=== PATIENT | male | born 1980 | race Caucasian/White ===

== ENCOUNTER 2019-08-12 19:00 | Emergency (ER) | payer MEDICAID, SELFPAY ==
--- NOTE | ~2019-08-12 | XR_ITS ---
EXAMINATION: XR chest 2V EXAM DATE: 08/12/2019 19:40 INDICATION: Anterior chest discomfort, tightness. Shortness of breath. TECHNIQUE: Frontal and lateral projections of the chest obtained and reviewed. Comparison is made to prior examination from 09/24/2018. FINDINGS: The lungs are clear. There are no pleural effusions. The cardiomediastinal silhouette is within normal limits. There is no pneumothorax suspected. The bones and soft tissues are unremarkab le. IMPRESSION: Unremarkable chest x-ray exam. Reviewed, dictated and finalized at location A.
[2019-08-12 19:09] VITALS: BP 163/98; PULSE 103; RESP 16; TEMP 36.7; O2SAT 98
[2019-08-12 19:15] VITALS: RESP 17; O2SAT 100
--- NOTE | 2019-08-12 19:19 | ECG_ITS ---
Measurements Intervals [place] Rate: 100 P: 36 GA: 139 QRS: -13 QRSD: 101 T: 22 QT: 362 QTc: 469 Interpretive Statements SINUS TACHYCARDIA BORDERLINE T WAVE ABNORMALITY- INFERIOR LEADS BORDERLINE ECG Electronically Signed On 08-12-2019 19:42:38 CDT by Nir Campos D.O.
[2019-08-12 19:23] VITALS: PULSE 85
[2019-08-12 19:37] LABS: Basophils Absolute Auto 0.1 K/mm3 (0.0-0.1); Basophils Percent Auto 0.6 % (0.2-1.2); Eosinophils Absolute Auto 0.2 K/mm3 (0-0.3); Eosinophils Percent Auto 2.6 % (0-4.4); Hemoglobin 14.5 g/dL (14.0-18.0); Immature Granulocyte Absolute 0.01 K/mm3 (0.00-0.031); Immature Granulocyte Percent A 0.1 % (0-0.5); Lymphocytes Percent Auto 37.8 % (18.3-44.2); Mean Corpuscular HGB Conc 35.4 g/dl (32-36); Mean Corpuscular Hemoglobin 29.5 pg (26-34); Mean Corpuscular Volume 83.3 fl (80-100); Mean Platelet Volume 10.7 fl (7.4-10.4); Monocytes Absolute Auto 0.5 K/mm3 (0.1-0.6); Monocytes Percent Auto 6.1 % (2.6-8.5); Neutrophils Absolute Auto 4.3 K/mm3 (1.3-6.7); Neutrophils Percent Auto 52.8 % (45.5-73.1); Platelet Count Result 271 k/mm3 (150-375); Red Blood Count 4.92 M/mm3 (4.6-6.20); White Blood Count 8.2 K/mm3 (4.5-10.0)
[2019-08-12 19:45] LABS: INR 0.9; Prothrombin Time 12.2 Seconds (11.1-14.7)
[2019-08-12 19:46] LABS: Partial Thromboplastin Time 27.5 SECONDS (22.3-36.8)
[2019-08-12 19:49] LABS: Blood Urea Nitrogen 8 mg/dL (9-20); Calcium 9.2 mg/dL (8.4-10.2); Carbon Dioxide 26 mmol/L (22-30); Chloride 102 mmol/L (98-107); Estimated CRCL calculation 149 ml/min; Estimated Glomerular Filt Rate > 60; Glucose 115 mg/dL (75-110); Potassium 3.4 mmol/L (3.4-5.0); Sodium 138 mmol/L (137-145)
[2019-08-12 20:01] LABS: Troponin I < 0.012 ng/mL (0.000-0.034)
[2019-08-12] MEDS: ASPIRIN 81 MG CHEWABLE TABLET 324 MG PO (20:23)
[2019-08-12 20:25] VITALS: BP 137/88; PULSE 90; RESP 19; O2SAT 100
--- NOTE | 2019-08-12 20:50 | PC.NURSE ---
Patient reports he feels like he is going to pass out and his left leg is starting to feel numb. EDP Raissa notified.
[2019-08-12 20:57] VITALS: BP 154/97; PULSE 99; RESP 20; O2SAT 97
--- NOTE | 2019-08-12 21:09 | PC.NURSE ---
Called lab to add on D Dimer
--- NOTE | 2019-08-12 21:15 | ED.GENADULT ---
HPI - General Adult General Chief complaint: Unspecified Stated complaint: ELEVATED BP FEELS SHAKEY Time Seen by Provider: 08/12/19 21:08 History of Present Illness HPI narrative: Patient presents with multiple symptoms. He is weaning off his benzodiazepines, since they were discontinued at his new mental health clinic. He took his last pill yesterday. Now he feels tingly all over and jittery. He feels like his left foot is going cold. He feels like he has chest pressure. His blood pressure is elevated. He still on his methadone, but also being weaned from his Adderall. 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 He has insurance which will pay for psychiatrist, but does not have one now. He denies medical problems. Related Data Home Medications Medication Instructions Recorded Confirmed Methadone Intensol 126 mg 08/12/19 clonazepam 08/12/19 dextroamphetamine-amphetamine 08/12/19 Allergies Allergy/AdvReac Type Severity Reaction Status Date / Time No Known Allergies Allergy Unverified 09/24/18 23:33 Review of Systems Review of Systems: Narrative: CONSTITUTIONAL: Denies fever, chills, or sweats. EYES: Denies visual changes, redness, or discharge. ENT: Denies rhinorrhea, congestion, sore throat, or otalgia. CARDIOVASCULAR: Denies chest pain, palpitations, or edema. RESPIRATORY: Denies cough or dyspnea. GASTROINTESTINAL: Denies abdominal pain, nausea, vomiting, or diarrhea. GENITOURINARY: Denies dysuria or hematuria. SKIN: Denies rash or itching. MUSCULOSKELETAL: Denies back pain, joint pain, or myalgia. NEUROLOGIC: Denies headache, numbness, or weakness. He feels like his left foot is going cold, jittery and tingly. PSYCHIATRIC: Denies anxiety or depression. All systems reviewed & are unremarkable except as noted in HPI and below PMFSH Past Medical History Medical History (Updated 08/12/19 @ 21:20 by Nai Haji MD) Benzodiazepine withdrawal Heroin addiction Surgical History Surgical History (Updated 08/12/19 @ 21:20 by Nai Haji MD) History of circumcision Social History Social History (Updated 08/12/19 @ 21:20 by Nai Haji MD) Smoking status: Former smoker Substance use: former Exam Narrative: Exam Narrative: My gENERAL: Well-appearing, well-nourished, and in no acute distress. HEAD: Normocephalic, atraumatic. EYES: PERRLA and EOMI. ENT: Nares clear, no rhinorrhea or epistaxis. Mucous membranes moist. NECK: Supple. CHEST: Clear to auscultation. No respiratory distress. HEART: Regular rate and rhythm. No murmur heard. Normal peripheral pulses. ABDOMEN: Soft, nontender, nondistended, normal active bowel sounds. EXTREMITIES: Normal range of motion. No edema. SKIN: Warm, dry, psoriasis plaques on his hands. NEURO: No focal deficits. Alert and oriented x3. PSYCH: Normal mood and affect. Course Reevaluation(s) Reevaluation #1: Went back to the patient admit his fianc?e, he is still concerned that he will not find a psychiatrist in a timely fashion. I encouraged him to call the one 800-number on his insurance. I told him I would give him a few days worth of benzodiazepines for the withdrawal. Date: 08/12/19 Time: 22:48 Vital Signs Vital signs: Vital Signs Temperature 98.1 F 08/12/19 19:09 Pulse Rate 103 H 08/12/19 19:09 Respiratory Rate 16 08/12/19 19:09 Blood Pressure 163/98 H 08/12/19 19:09 Pulse Oximetry 98 08/12/19 19:09 Temperature 98.1 F 08/12/19 19:09 Pulse Rate 99 08/12/19 20:57 Respiratory Rate 20 08/12/19 20:57 Blood Pressure 154/97 H 08/12/19 20:57 Pulse Oximetry 97 08/12/19 20:57 Medical Decision Making Differential Diagnosis Differential Diagnosis: Benzodiazepine withdrawal. Medical Records Medical records reviewed: Yes I reviewed the patient's medical records. Vital Signs Vital Signs: Vital Signs Temperature 98.1 F 08/12/19 19:09 Pulse Rate 103 H 08/12/19 19:09 Respiratory Rate 16 08/12/19 19:09 B
[2019-08-12 21:23] LABS: D Dimer 0.29 ug/mL (<0.48)
[2019-08-12] MEDS: LORAZEPAM INJ 2 MG/ML VIAL 1 MG IV PUSH (21:24)
--- NOTE | 2019-08-12 22:09 | PC.NURSE ---
Per EDP Raissa via verbal order read back, no 3 hour troponin needs to be drawn.
[2019-08-12 23:01] VITALS: BP 139/89; PULSE 89; RESP 12; TEMP 36.3; O2SAT 100
== END 2019-08-12 23:03 | disposition home or self-care (01) ==
PROVIDERS: Emergency Provider Emergency Medicine; PCP Internal Medicine
DX: F13.232 Sedative, hypnotic or anxiolytic dependence with withdrawal with perceptual disturbance (principal); Z87.891 Personal history of nicotine dependence; R00.0 Tachycardia, unspecified; R94.31 Abnormal electrocardiogram [ECG] [EKG]
CPT/HCPCS: 36415; 71046; 80048; 84484; 85025; 85380; 85610; 85730; 93005; 96374; 99284; A9270; J2060

== ENCOUNTER 2020-06-22 14:09 | Outpatient (CLI) | payer OTHER, SELFPAY | END 2020-06-22 14:10 | disposition home or self-care (01) | LOC: ANHCOVIDVC 14:09 | PROVIDERS: PCP Internal Medicine | DX: Z23 Encounter for immunization (principal) | CPT/HCPCS: 0001A; 91300 ==

== ENCOUNTER 2020-07-07 14:52 | Emergency (ER) | payer OTHER, SELFPAY ==
[2020-07-07] VITALS (16 sets, daily range): BP systolic 105–150; BP diastolic 73–99; PULSE 67–93; RESP 14–22; TEMP 35.9; O2SAT 96–100
--- NOTE | ~2020-07-07 | XR_ITS ---
EXAMINATION: XR chest 1V portable 07/07/2020 17:49 INDICATION: Midsternal chest pain and shortness of breath PROCEDURE: AP portable chest COMPARISON: 08/12/2019 FINDINGS: The lungs are clear. The cardiomediastinal silhouette is within normal limits. There are no pleural effusions. There is no pneumothorax suspected. IMPRESSION: 1: NO ACUTE CARDIOPULMONARY DISEASE. Reviewed, dictated and finalized at location A.
--- NOTE | 2020-07-07 17:26 | PC.NURSE ---
Pt to ED with complaints of feeling very anxious. Pt states he used to be prescribed clonazepam for his anxiety but he is no longer prescribed them as he does not see his PCP any more. Pt states he had been taking Xanax that he buys off the street but he ran out yesterday.
--- NOTE | 2020-07-07 17:31 | ECG_ITS ---
Measurements Intervals [place] Rate: 72 P: 12 TN: 146 QRS: -9 QRSD: 94 T: 34 QT: 298 QTc: 327 Interpretive Statements SINUS RHYTHM INCOMPLETE RIGHT BUNDLE BRANCH BLOCK BASELINE WANDER- I, II, III, AVR, AVF, V1, V3-V6 BORDERLINE ECG Electronically Signed On 07-07-2020 20:01:06 CDT by Nir Campos D.O.
--- NOTE | 2020-07-07 17:40 | ED.GENADULT ---
HPI - General Adult General Chief complaint: Unspecified Stated complaint: xanax withdrawal Time Seen by Provider: 07/07/20 17:25 Source: patient History of Present Illness HPI narrative: Patient is a 40 y/o male complaining of chest pressure and inability to catch a deep breath starting this morning. He describes his chest pressure as midsternal and rates it as 5/10. His chest discomfort radiates to his back. There is no alleviating or exacerbating factor. He states that he was on Clonapam and just ran out. Related Data Home Medications Medication Instructions Recorded Confirmed Methadone Intensol 126 mg BYMOUTH 08/12/19 Allergies Allergy/AdvReac Type Severity Reaction Status Date / Time No Known Allergies Allergy Unverified 07/07/20 17:22 Review of Systems Constitutional: Constitutional: Denies chills, Denies fever(s), Denies headache(s) and Denies weakness Eyes: Eyes: Denies blurry vision ENT: Denies headache(s) and Denies neck pain Cardiovascular: Cardiovascular: Reports chest pain and Reports dyspnea Respiratory: Respiratory: Denies cough and Reports dyspnea Gastrointestinal: Gastrointestinal: Denies abdominal pain, Denies diarrhea, Denies nausea and Denies vomiting Genitourinary: Genitourinary: Denies hematuria and Denies dysuria Musculoskeletal: Musculoskeletal: Denies back pain and Denies neck pain Neurologic: Denies headache(s) and Denies weakness PMFSH Past Medical History Medical History Benzodiazepine withdrawal Heroin addiction Surgical History Surgical History History of circumcision Social History Social History Smoking status: Former smoker Substance use: former Exam Const: General: no acute distress and well developed Orientation/consciousness: oriented to person, oriented to place, oriented to time and patient oriented x3 HENMT: Head: normocephalic Ears: external ears normal General nose exam: Normal external nose present Eyes: General: appearance normal, both eyes and all related structures Conjunctivae: conjunctivae normal Neck: Neck: normal visual inspection and full ROM Chest: Chest palpation & inspection: normal inspection of the chest and no tenderness Resp: Effort & Inspection: normal respiratory effort Auscultation: clear to auscultation bilaterally Cardio: Rate: regular rate Rhythm: regular rhythm GI: GI Palp: No abdominal tenderness and Yes Soft to palpation Skin: General skin exam: normal color and turgor normal Neuro: General: oriented to person, oriented to place, oriented to time and patient oriented x3 Cognition (Neuro): normal cognition Extrem: General: normal to inspection, full ROM and no pedal edema Psych: Appearance: grossly normal Mental Status: mental status grossly normal Affect: Anxious affect present Course Vital Signs Vital signs: Vital Signs Temperature 35.9 C L 07/07/20 14:54 Pulse Rate 76 07/07/20 14:54 Respiratory Rate 20 07/07/20 14:54 Blood Pressure 133/96 H 07/07/20 14:54 Pulse Oximetry 100 07/07/20 14:54 Temperature 35.9 C L 07/07/20 14:54 Pulse Rate 92 07/07/20 20:38 Respiratory Rate 20 07/07/20 20:38 Blood Pressure 124/99 H 07/07/20 20:38 Pulse Oximetry 99 07/07/20 20:38 Medical Decision Making Vital Signs Vital Signs: Vital Signs Temperature 35.9 C L 07/07/20 14:54 Pulse Rate 76 07/07/20 14:54 Respiratory Rate 20 07/07/20 14:54 Blood Pressure 133/96 H 07/07/20 14:54 Pulse Oximetry 100 07/07/20 14:54 Temperature 35.9 C L 07/07/20 14:54 Pulse Rate 92 07/07/20 20:38 Respiratory Rate 20 07/07/20 20:38 Blood Pressure 124/99 H 07/07/20 20:38 Pulse Oximetry 99 07/07/20 20:38 Lab Data Result diagrams: 07/07/20 17:53 07/07/20 17:53 Labs: Lab Results
--- NOTE | 2020-07-07 17:46 | PC.NURSE ---
xray at bedside.
[2020-07-07 18:09] LABS: Alanine Aminotransferase 53 U/L (4-50); Albumin Level 4.9 g/dL (3.5-5.1); Alkaline Phosphatase 97 U/L (38-126); Anion Gap 7 mmol/L (8-16); Aspartate Amino Transferase 52 U/L (17-59); Blood Urea Nitrogen 10 mg/dL (9-20); Calcium 10.6 mg/dL (8.4-10.2); Carbon Dioxide 28 mmol/L (22-30); Chloride 104 mmol/L (98-107); Estimated CRCL calculation 101 ml/min; Estimated Glomerular Filt Rate > 60; Glucose 110 mg/dL (75-110); Potassium 3.7 mmol/L (3.4-5.0); Sodium 139 mmol/L (137-145)
[2020-07-07 18:13] LABS: Basophils Percent Auto 0.4 % (0.2-1.2); Eosinophils Percent Auto 0.3 % (0-4.4); Hematocrit 40.9 % (42.0-52.0); Hemoglobin 14.2 g/dL (14.0-18.0); Immature Granulocyte Absolute 0.01 K/mm3 (0.00-0.031); Immature Granulocyte Percent A 0.1 % (0-0.5); Lymphocytes Absolute Auto 1.53 K/mm3 (0.9-3.2); Lymphocytes Percent Auto 19.3 % (18.3-44.2); Mean Corpuscular HGB Conc 34.7 g/dl (32-36); Mean Corpuscular Hemoglobin 28.9 pg (26-34); Mean Corpuscular Volume 83.1 fl (80-100); Mean Platelet Volume 9.6 fl (7.4-10.4); Monocytes Absolute Auto 0.4 K/mm3 (0.1-0.6); Monocytes Percent Auto 5.2 % (2.6-8.5); Neutrophils Absolute Auto 5.9 K/mm3 (1.3-6.7); Neutrophils Percent Auto 74.7 % (45.5-73.1); Platelet Count Result 297 k/mm3 (150-375); Red Blood Count 4.92 M/mm3 (4.6-6.20); Red Cell Distribution Width 12.3 % (11.5-14.5); White Blood Count 7.9 K/mm3 (4.5-10.0)
[2020-07-07 18:20] LABS: Troponin I < 0.012 ng/mL (0.000-0.034)
[2020-07-07 18:43] LABS: Add Urine Microscopic? YES; Appearance Urine Clear (Clear); Bilirubin Urine Negative (Negative); Blood Urine Negative (Negative); Color Urine Straw (Yellow); Glucose Urine UA Negative (Negative); Ketones Urine Negative (Negative); Leukocyte Esterase Ur Trace LEU/UL (Negative); Nitrate Urine Negative (Negative); Protein Urine Negative (Negative); RBC Urine 0-2 /hpf (0-2); Urobilinogen Urine Negative mg/dL (<2.0); WBC Urine 0-3 /hpf
[2020-07-07 18:45] LABS: Specific Grav Ur 1.004 (1.001-1.035)
[2020-07-07 18:58] LABS: Amphetamine Screen Urine Negative (Negative); Barbiturate Screen Urine Negative (Negative); Benzodiazepines Screen Urine Negative (Negative); Cannabinoid Screen Urine Negative (Negative); Cocaine Screen Urine Negative (Negative); Methadone Screen Urine Positive (Negative); Opiate Screen Urine Positive (Negative); Phencyclidine Screen Urine Negative (Negative)
[2020-07-07] MEDS: LORazepam (*CRX) 0.5 MG TABLET PO (19:39)
[2020-07-07] MEDS: BELLADONNA ALK/PHENOB ELIX 10 ML, MAG HYDROX/ALUMINUM HYD/SIMETH 30 ML, LIDOCAINE HCL 2... PO (20:35)
[2020-07-07 21:29] LABS: Troponin I < 0.012 ng/mL (0.000-0.034)
== END 2020-07-07 22:46 | disposition home or self-care (01) ==
PROVIDERS: Emergency Provider Emergency Medicine
DX: R07.89 Other chest pain (principal); F41.9 Anxiety disorder, unspecified; Z87.891 Personal history of nicotine dependence; I45.10 Unspecified right bundle-branch block
CPT/HCPCS: 36415; 71045; 80053; 80307; 81001; 84484; 85025; 93005; 99284; A9270

== ENCOUNTER 2020-07-13 13:31 | Outpatient (CLI) | payer OTHER, SELFPAY | END 2020-07-13 13:32 | LOC: ANHCOVIDVC 13:31 | DX: Z23 Encounter for immunization (principal) | CPT/HCPCS: 0002A; 91300 ==

== ENCOUNTER 2021-07-25 09:03 | Outpatient (CLI) | payer OTHER, SELFPAY ==
--- NOTE | ~2021-07-25 | XR_ITS ---
EXAMINATION: XR chest 2V 07/25/2021 10:15 INDICATION: Dyspnea. PROCEDURE: 2 view chest COMPARISON: Comparison to multiple prior studies sequentially, with oldest reviewed study dated 10/10. FINDINGS: The lungs are clear. The cardiomediastinal silhouette is within normal limits. There are no pleural effusions. There is no pneumothorax suspected. IMPRESSION: 1: NO ACUTE CARDIOPULMONARY DISEASE. Reviewed, dictated and finalized at location A.
--- NOTE | ~2021-07-25 | XR_ITS ---
EXAMINATION: XR barium swallow DATE: 07/25/2021 10:18 INDICATION: Dysphagia, possible hernia, indigestion TECHNIQUE: The patient drank thick barium, gas-producing crystals, and thin barium. Fluoroscopy of th e hypopharynx and esophagus was performed. Fluoroscopy exposure time was 2.2 minutes. The DAP for thi s procedure was 17.604 Gycm2. COMPARISON: None. FINDINGS: There is no mass or stricture of the esophagus. Mild nonperistaltic contractions are noted in the mid and distal esophagus. There is no hiatal hernia. There was no gastroesophageal reflux with provocative maneuvers. IMPRESSION: 1. Mild nonperistaltic contractions of the mid and distal esophagus. Reviewed, dictated and finalized at location A.
== END 2021-07-25 09:04 | disposition home or self-care (01) ==
PROVIDERS: PCP Family Medicine; Visit Provider Nurse Practitioner Adult Health
DX: K44.9 Diaphragmatic hernia without obstruction or gangrene (principal); R10.9 Unspecified abdominal pain; R13.10 Dysphagia, unspecified; R06.00 Dyspnea, unspecified
CPT/HCPCS: 71046; 74220

== ENCOUNTER 2024-03-02 09:15 | Outpatient (CLI) | payer OTHER, SELFPAY ==
[2024-03-02 09:47] LABS: Basophils Percent Auto 0.3 % (0.2-1.2); Eosinophils Absolute Auto 0.2 K/mm3 (0-0.3); Eosinophils Percent Auto 3.4 % (0-4.4); Hematocrit 34.4 % (42.0-52.0); Hemoglobin 12.1 g/dL (14.0-18.0); Immature Granulocyte Absolute 0.02 K/mm3 (0.00-0.031); Immature Granulocyte Percent A 0.3 % (0-0.5); Lymphocytes Percent Auto 40.9 % (18.3-44.2); Mean Corpuscular HGB Conc 35.2 g/dl (32-36); Mean Corpuscular Hemoglobin 29.3 pg (26-34); Mean Corpuscular Volume 83.3 fl (80-100); Mean Platelet Volume 10.2 fl (7.4-10.4); Monocytes Absolute Auto 0.6 K/mm3 (0.1-0.6); Monocytes Percent Auto 10.2 % (2.6-8.5); Neutrophils Absolute Auto 2.6 K/mm3 (1.3-6.7); Neutrophils Percent Auto 44.9 % (45.5-73.1); Platelet Count Result 202 k/mm3 (150-375); Red Blood Count 4.13 M/mm3 (4.6-6.20); Red Cell Distribution Width 12.4 % (11.5-14.5); White Blood Count 5.9 K/mm3 (4.5-10.0)
[2024-03-02 10:04] LABS: Alanine Aminotransferase 79 U/L (6-50); Alkaline Phosphatase 73 U/L (38-126); Anion Gap 7 mmol/L (4-12); Aspartate Amino Transferase 68 U/L (17-59); Blood Urea Nitrogen 8 mg/dL (9-20); Calcium 8.9 mg/dL (8.4-10.2); Carbon Dioxide 31 mmol/L (22-30); Chloride 101 mmol/L (98-107); Cholesterol 120 mg/dL (0-200); Estimated Glomerular Filt Rate > 60; Glucose 105 mg/dL (65-110); HDL Direct 37 mg/dL; Potassium 3.1 mmol/L (3.4-5.0); Sodium 139 mmol/L (137-145); Triglycerides 63 mg/dL (<150)
[2024-03-02 10:15] LABS: LDL Cholesterol Direct 58 mg/dL
[2024-03-02 10:28] LABS: Prostate Specific Antigen 2.1 ng/mL (< OR = 4.0)
[2024-03-02 11:56] LABS: Hepatitis C Virus Antibody Negative (Negative)
--- OUTSIDE RECORDS SUMMARY | 2024-03-09 03:41 | XMS_ITS | Encounter Summary ---
Author Organization [facility] Address [address] [place] [address] Phone Care Team Providers Care Radio Personality Name Role Phone Max Miller MD Primary Care Provider [phone] Tawny Flowers MD Unavailable [phone] Luis M Mcarthur MD Unavailable [phone] Reason for Visit * Reason Onset Date Comments Chest Pain 02/22/2020 Encounter Details Date Type Department Care Team (Late st Contact Info) Description 02/22/2020 Nurse Triage [facility] [address] [place] [address] Max Miller MD [address] [place], [place] [id number] Chest Pain Social History Tobacco Use Types Packs/Day Years Used Date Smoking Tobacco: Some Days Cigarettes 1 2 E-Vapor with Nicotine Smokeless Tobacco: Never Alcohol Use Standard Drinks/Week Comments No 0 (1 standard drink = 0.6 oz pur e alcohol) Sexually Active Control Partners Comments Yes Female Sex and Gender Information Value Date Recorded Sex Assigned at Not on file Legal Sex Male 11:07 PM CDT Gender Identity Not on file Sexual Orientation Not on file COVID-19 Exposure Response Date Recorded In the last month, have you been in contact with someone who was confirmed or suspected to have Coronavirus / COVID-19? 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 SITUATION (caller perception/concerns): Chest pain, BACKGROUND (events leading up to call): Symptoms have been ongoing for approximately 6 months, worsened about 3 days History: No pertinent medical history in Snapshot ASSESSMENT: Onset: 3 days ago symptoms worsened Symptoms: States sternum feels bruised , pain worsens with laying down; harder to breathe when laying down; worsens with taking a deep breath, states it sounds congested internally , productive cough Pain: Present now: Yes Length of time present: Months, worsened over past 3 days Constant or intermittent: Intermittent Description of pain: Feels like a bruise and sometimes like a bronchitis Level of pain/location: 5-6/10, center of chest located where sternum is Ability to perform daily activities: More easily fatigued Temp (route, time): Denies fever Other Symptoms: Denies severe chest pain, severe difficulty breathing, denies dizziness or lightheadedness, denies pain in shoulder/arm/jaw, Treatment with response: OTC Tylenol, feels like improvements symptoms RECOMMENDATION: See today in office. Patient requests office visit. Office visit scheduled with for today at 1:45 pm. Patient agrees to call back if any new or worsening symptoms. See care advice and disposition for guideline. First positive answer recorded, all responses to prior questions were negative. If symptoms increase, change or if new symptoms develop, call your HCP or call back. Recommendation based on caller information and is not a diagnosis. Verified and reviewed all triage information with caller. Caller verbalized understanding of information given and denies further questions. Teach-back method utilized. Travel Screening Question Response In the last month, have you been in contact with someone who was confirmed or suspected to have Coronavirus / COVID-19? No / Unsure Have you had a COVID-19 viral test in the last 14 days? No Do you have any of the following new or worsening symptoms? Cough;Shortness of breath;Runny nose Have you traveled internationally in the last month? No Travel History Travel since 01/23/20 No documented travel since 01/23/20 COVID-19 Testing Priority for Rohan Campuzano: 3 Reason for Disposition ??? Patient wants to be seen Protocols used: CHEST PAIN-A-OH CTOR OF SUPPLY CHAIN documented in this encounter Plan of Treatment Not on file documented as of this encounter Visit Diagnoses Not on filedocumented in this encounter Additional Health Concerns Assessment Noted Time PHQ-9 Depression Total Score: 1 08/21/19 17 11:00 AM CDT documented as of this encounter Care Teams Radio Personality Relationship Specialty Start Date End Date Max Miller MD [address] [place] [address] PCP - General Internal Medicine 12/07/14 01/08/22 Tawny Flowers MD [address] [place] [address] Consulting Physician Addiction Medicine 06/24/15 Luis M Mcarthur MD [address] [facility] GASTROENTEROLOGY, [facility] [address] [place] [address] Consulting Physician Gastroenterology 08/27/18 documented as of this encounter
--- OUTSIDE RECORDS SUMMARY | 2024-03-09 03:41 | XMS_ITS | Clinical Summary ---
Author Organization [facility] Address [address], [address] [address] Phone Care Team Providers Care Church Secretary Name Role Phone Tawny Flowers MD Unavailable [phone] Luis M Mcarthur MD Unavailable [phone] Provider, None Primary Care Provider Unavailabl e Allergies No known active allergies Medications amphetamine-dex troamphetamine (ADDERALL) 20 MG Tablet Take 20 mg by mouth 2 times daily. 0 6 Active pantoprazole (PROTONIX) 40 MG Tablet Delayed Response TK 1 T PO QAM 30 MINUTES BEFORE BREAKFAST DAILY 6 7 Active methadone (DOLOPHINE) 10 MG Tablet Take 15 mg by mouth every morning. Active clonazePAM (KLONOPIN) 0.5 MG Tablet Take 0.5 mg by mouth 3 times daily. Active divalproex (DEPAKOTE ER) 500 MG TABLET SR 24 HR TK 1 T PO BID 0 9 Active albuterol 108 (90 Base) MCG/ACT Aerosol Solution take 2 Puffs by inhalation every 4 hours as needed for Wheezing or Cough. 1 Inhaler 9 Active azithromycin (ZITHROMAX) 250 MG Tablet 2 tab(s) daily for 1 day, then 1 tab(s) daily for days 2-5. 6 Tab 9 Active azithromycin (ZITHROMAX) 250 MG Tablet 2 tab(s) daily for 1 day, then 1 tab(s) daily for days 2-5. 6 Tab 9 Active Active Problems Problem Noted Date Diagnosed Date Opioid dependence 01/19/2018 Overview (08/27/2018): Last Assessment & Plan: Patient reports 115mg methadone dose daily through [facility] in [place]; states he received dose in 01/19. Center states current does is 140mg qd - resumed methadone @ 100mg given recent hospital narcotics: patient has appointment for outpatient doses tomorrow - Manage pain with IV opioids currently; will not prescribe at discharge - ECG for QTc at 426 Diverticulosis of intestine with bleeding 2016 Chronic constipation 12/25/2016 Hyperlipidemia 04/27/2016 Anxiety and depression Overview (08/27/2018): Last Assessment & Plan: Euthymic on exam. Denies HI/SI - Continue home clonopin, adderall, zoloft ADHD (attention deficit hyperactivity disorder) Immunizations Immunization Administration Dates Next Due DTAP VACCINE 03/18/2014 Influenza Vaccine greater than 3 yrs 01/19/2018 Influenza Vaccine, Quadrivalent, PF 12/25/2016 Influenza, high-dose, trivalent, PF 01/05/2016 PUR FLU 3+ YRS PRES FREE QUAD IM 04/26/2015 Family History * Patient is adopted Relation Name Status Comments Father Other adopted Mother Other adopted Social History Tobacco Use Types Packs/Day Years Used Date Smoking Tobacco: Some Days Cigarettes 1 2 E-Vapor with Nicotine Smokeless Tobacco: Never Tobacco Cessation:Ready to Q uit: No; Counseling Given: Yes Alcohol Use Standard Drinks/Week Comments No 0 (1 standard drink = 0.6 oz pur e alcohol) Sexually Active Control Partners Comments Yes Female Sex and Gender Information Value Date Recorded Sex Assigned at Not on file Legal Sex Male 11:07 PM CDT Gender Identity Not on file Sexual Orientation Not on file Last Filed Vital Signs Vital Sign Reading Time Taken Comments Blood Pressure 124/76 01/02/2019 10:04 AM CDT Pulse 92 01/02/2019 10:04 AM CDT Temperature 36.9 ??C (98.4 ??F) 01/02/2019 10:04 AM C DT Respiratory Rate 20 01/02/2019 10:04 AM CDT Oxygen Saturation 94% 01/02/2019 10:04 AM CDT Inhaled Oxygen Concentration - - Weight 109.3 kg (241 lb) 01/02/2019 10:04 AM CDT Height 180.3 cm (5' 11 ) 01/02/2019 10:04 AM CDT Body Mass Index 33.61 01/02/2019 10:04 AM CDT Plan of Treatment Health Maintenance Due Date Last Done Comments Hepatitis C Virus (HCV) Screening 1980 Hepatitis B Immunization (1 of 3 - 19+ 3-dose series) 07/02/1998 Influenza Immunization (#1) 2023 11/0 06/2017, 12/25/2016, 01/05/2016, Additional history exists SARS-COV-2 Immunization (2023- season) 2023 07/13/2020, 06/22/2020 Respiratory Syncytial Virus (RSV) Immunization (Adult) (1 - 1-dose 75+ series) 07/02/2054 DTaP/Tdap/Td Immunization Discontinued 03/18/2014 Meningococcal Immunization (ACWY) Aged Out No longer eligible based on patient's age to complete this topic Pneumococcal Immunization Combined Aged Out No longer eligible based on patient's age to complete this topic Rotavirus Immunization Aged Out No lo nger eligible based on patient's age to complete this topic Insurance Care Teams Church Secretary Relationship Specialty Start Date End Date Provider, None [place] PCP - General 01/09/22 Tawny Flowers MD [address] [place] [address] Consulting Physician Addiction Medicine 06/24/15 Luis M Mcarthur MD [address] [place] [address] GASTROENTEROLOGY, [facility] [address] [place] [address] Consulting Physician Gastroenterology 08/27/18
--- OUTSIDE RECORDS SUMMARY | 2024-03-09 03:41 | XMS_ITS | Encounter Summary ---
Author Organization [employer] [facility] Care Team Providers Care Government Services Professional Name Role Phone Max Miller MD Primary Care Provider [phone] Tawny Flowers MD Unavailable [phone] Luis M Mcarthur MD Unavailable [phone] Encounter Details Date Type Department Care Team (Latest Contact Info) Description 10/02/2019 Travel Social History Tobacco Use Types Packs/Day Years [...] have Coronavirus / COVID-19? No / Unsure 10/02/2019 2:53 PM CDT documented as of this encounter Plan of Treatment Not on file documented as of this encounter Visit Diagnoses Not on filedocumented in this encounter Additional Health Concerns Assessment Noted Time PHQ-9 Depression Total Score: 1 08/21/19 17 11:00 AM CDT documented as of this encounter Care Teams Government Services Professional Relationship Specialty Start Date End Date Max Miller MD [address] [place] [address] PCP - General Internal Medicine 12/07/14 01/08/22 Tawny Flowers MD [address] [place] [address] Consulting Physician Addiction Medicine 06/24/15 Luis M Mcarthur MD [address] [facility] GASTROENTEROLOGY, [facility] [address] [place] [address] Consulting Physician Gastroenterology 08/27/18 documented as of this encounter
--- OUTSIDE RECORDS SUMMARY | 2024-03-09 03:41 | XMS_ITS | Encounter Summary ---
Author Organization [facility] Address [address] [place] [address] Phone Care Team Providers Care Sample Prep Technician Name Role Phone Max Miller MD Primary Care Provider [phone] Tawny Flowers MD Unavailable [phone] Luis M Mcarthur MD Unavailable [phone] Reason for Visit * Reason Onset Date Comments Chest Congestion 10/02/2019 Encounter Details Date Type Department Care Team (Late st Contact Info) Description 10/02/2019 [facility] [address] [place] [address] Max Miller MD [address] [place], [place] [id number] Chest Congestion Social History Tobacco Use Types Packs/Day Years [...] PM CDT documented as of this encounter Miscellaneous Notes * Telephone Encounter - Taniya Schilling RN - 10/02/2019 2:50 PM CDT SITUATION: Chest congestion BACKGROUND: Sx started on 09/27 ASSESSMENT: Symptom Description / Location: Patient is complaining chest congestion, shortness of breath with exertion, and slightly productive cough. Patient states his throat is irritated when he bends over. Patient states he has chest discomfort at all times, but worsens when he coughs. Patient states he has a runny nose as well. Patient states he has wheezing, which is not his normal. Declines any other symptoms. Pain (0-10): 6/10 Temp: denies fever Treatment / Response: Nyquil/Dayquil, doesn't really help RECOMMENDATION: See care advice and disposition for Guideline First positive answer recorded, all responses to prior questions were negative. If symptoms increase, change or if new symptoms develop, call your HCP or call back. Recommendations were based on caller information and is not a diagnosis. Verified and reviewed all triage information with caller. Reason for Disposition ??? Wheezing is present Protocols used: COUGH-A-OH Patient given COVID hotline number and states he'll run to [facility] to be evaluated as well. documented in this encounter Plan of Treatment Not on file documented as of this encounter Visit Diagnoses Not on filedocumented in this encounter Additional Health Concerns Assessment Noted Time PHQ-9 Depression Total Score: 1 08/21/19 17 11:00 AM CDT documented as of this encounter Care Teams Sample Prep Technician Relationship Specialty Start Date End Date Max Miller MD [address] [place] [address] PCP - General Internal Medicine 12/07/14 01/08/22 Tawny Flowers MD [address] [place] [address] Consulting Physician Addiction Medicine 06/24/15 Luis M Mcarthur MD [address] [facility], [facility] [address] [place] [address] Consulting Physician Gastroenterology 08/27/18 documented as of this encounter
--- OUTSIDE RECORDS SUMMARY | 2024-03-09 03:41 | XMS_ITS | Encounter Summary ---
Author Organization [facility] Care Team Providers Care Doctor Of Naturopathic Medicine Name Role Phone Max Miller MD Primary Care Provider [phone] Tawny Flowers MD Unavailable [phone] Luis M Mcarthur MD Unavailable [phone] Encounter Details Date Type Department Care Team (Latest Contact Info) Description 02/22/2020 Travel Social History Tobacco Use Types Packs/Day [...] COVID-19? 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, [facility] [address] [place] [address] Consulting Physician Gastroenterology 08/27/18 documented as of this encounter
== END 2024-03-02 09:16 | disposition home or self-care (01) ==
LOC: ANHLAB 09:16
PROVIDERS: PCP Family Medicine; Visit Provider Registered Nurse
DX: E78.5 Hyperlipidemia, unspecified (principal); F32.A Depression, unspecified; Z12.5 Encounter for screening for malignant neoplasm of prostate; Z11.59 Encounter for screening for other viral diseases
CPT/HCPCS: 36415; 80053; 80061; 84153; 85025; 86803; G0103

== ENCOUNTER 2024-04-08 16:10 | Outpatient (CLI) | payer OTHER, SELFPAY ==
[2024-04-08 17:33] LABS: Prostate Specific Antigen 0.4 ng/mL (< OR = 4.0)
== END 2024-04-08 16:11 | disposition home or self-care (01) ==
LOC: ANHLAB 16:13
PROVIDERS: PCP Family Medicine; Visit Provider Family Medicine
DX: N52.9 Male erectile dysfunction, unspecified (principal); D64.9 Anemia, unspecified; Z12.5 Encounter for screening for malignant neoplasm of prostate
CPT/HCPCS: 36415; 84153; 84402; 84403